=== PATIENT | female | born 1985 | race Caucasian/White ===

== ENCOUNTER 2018-12-21 06:58 | Inpatient (IN) | payer OTHER ==
[~2018-12-21] VITALS: Ht 165.1 cm; Wt 90.0 kg
[~2018-12-21 06:58] MED LIST: DOXYCYCLINE HY100 MG PO; IBUPROFEN600 MG PO; LEVAQUIN500 MG PO; NORCO 5-325 TA1 EACH PO; PRENATAL FORMU1 EAC1 PO
[2018-12-22] MEDS ORDERED: PROBIOTIC1 EAC1 PO (00:50)
[2018-12-22] MEDS ORDERED: MAGNESIUM200 MG PO (00:51)
[2018-12-22] MEDS ORDERED: ZANTAC150 MG PO (00:52)
[2018-12-22] MEDS ORDERED: VITAMIN B COMP1 EACH PO (00:53)
--- NOTE | 2018-12-22 09:34 | PR ---
[facility] [address], [place] [address] Signed Progress Notes IP Datetime Report Generated by CPN: 12/22/2018 09:34 PROGRESS NOTES: [id number] Impression: Normal progression of labor; Reassuring heart rate Other Procedures: Nitrous Oxide Plan: Continue present management; Anesthesia consult Informed Consent Obtain: Vaginal Delivery VITAL SIGNS: [id number] Vital Signs: Reviewed; Within Normal Limits EXAM: [id number] Dilatation: 8.0 Effacement: 90 Station: -1 Uterine Contractions: q1-2 MEMBRANES: [id number] ROM Note: last pelvic exam by RN Comments: Pt seen and evaluated. Doing well. Very uncomfortable w/ contractions. Anesthesia notified and en route, and pt has started nitrous oxide. Denies urge to push and FHT reassuring. Anticipate soon. Fetus A: [id number] FHR Baseline: 145 Variability: Minimal - Undetectable to <5bpm Accelerations: 15X15 Decelerations: None FHR Category: Category II Presentation: Vertex Comments on Fetus A: No evidence of metabolic acidosis Fetus B: [id number] Signing Physician: Pari Khoury DO Copies: ~ *Electronically Signed* 12/22/18 0934 PARI KHOURY DO PATIENT NAME: ANNE-MARIE RIDDLE MARCH PROGRESS NOTE DATE OF : 85 PHYSICIAN: PARI KHOURY DO RPT #: [id number] REPORT IS CONFIDENTIAL AND NOT TO BE RELEASED WITHOUT AUTHORIZATION
--- NOTE | 2018-12-22 10:05 | PR ---
[facility] [address], [place] [address] Signed Progress Notes IP Datetime Report Generated by NICK: 12/22/2018 10:05 PROGRESS NOTES: [id number] Impression: Normal progression of labor Procedures: Scalp Electrode; Sterile Vag Exam Other Procedures: Nitrous Oxide Plan: Continue present management; Anticipate Vaginal Delivery Informed Consent Obtain: Vaginal Delivery VITAL SIGNS: [id number] Vital Signs: Reviewed VS Notable Details: Elevated bps while pt very uncomfortable w/ epidural placement. Will monitor closely EXAM: [id number] Dilatation: 9.0 Effacement: 90 Station: 0 Uterine Contractions: q2 minutes MEMBRANES: [id number] ROM Note: last pelvic exam by RN Comments: Pt seen and examined. Difficult time tracing FHR while epidural being placed. FSE placed as soon as epidural placed and will closely monitor. Pt w/ some elevated BPs while very uncomfortable w/ epidural placement. Denies BRYANT, RUQ pain, or visual changes. C/O severe heartburn. Anticipate soon. Fetus A: [id number] FHR Baseline: indeterminate Variability: Minimal - Undetectable to <5bpm Accelerations: 15X15 Decelerations: None FHR Category: Category II Presentation: Vertex Comments on Fetus A: No evidence of metabolic acidosis Fetus B: [id number] Signing Physician: Pari Khoury DO Copies: ~ *Electronically Signed* 12/22/18 1005 PARI KHOURY DO PATIENT NAME: ANNE-MARIE RIDDLE MARCH PROGRESS NOTE DATE OF : 85 PHYSICIAN: PARI KHOURY DO RPT #: [id number] REPORT IS CONFIDENTIAL AND NOT TO BE RELEASED WITHOUT AUTHORIZATION
--- NOTE | 2018-12-22 10:13 | PR ---
[facility] [address], [place] [address] Signed Progress Notes IP Datetime Report Generated by CPN: 12/22/2018 10:13 PROGRESS NOTES: [id number] Impression: Normal progression of labor Procedures: Scalp Electrode; Sterile Vag Exam Other Procedures: Nitrous Oxide Plan: Continue present management; Anticipate Vaginal Delivery Informed Consent Obtain: Vaginal Delivery VITAL SIGNS: [id number] Vital Signs: Reviewed VS Notable Details: Sustained elevate BP. EXAM: [id number] Dilatation: 9.0 Effacement: 90 Station: 0 Uterine Contractions: q2 minutes MEMBRANES: [id number] ROM Note: last pelvic exam by RN Comments: Pt w/ persistant elevated BPs. Will treat with labetalol 20mg IV x 1 dose and monitor closely. Will check preE profile. Again no BRYANT, RUQ pain, or visual changes. Will hold on magnesium at this time but continue to monitor. Fetus A: [id number] FHR Baseline: 140 Variability: Moderate 6-25bpm Accelerations: 15X15 Decelerations: Variable FHR Category: Category II Presentation: Vertex Comments on Fetus A: No evidence of metabolic acidosis Fetus B: [id number] Signing Physician: Pari Khoury DO Copies: ~ *Electronically Signed* 12/22/18 1013 PARI KHOURY DO PATIENT NAME: ANNE-MARIE RIDDLE MARCH PROGRESS NOTE DATE OF : 85 PHYSICIAN: PARI KHOURY #: [id number] REPORT IS CONFIDENTIAL AND NOT TO BE RELEASED WITHOUT AUTHORIZATION
--- NOTE | 2018-12-23 07:37 | PR ---
[facility] [address] [facility] [place], [place] [address] Signed PP Progress Notes Datetime Report Generated by CPN: 12/23/2018 07:37 SUBJECTIVE: [id number] Pain: Within normal limits Nausea/Vomiting: Denies Flatus: Yes Bowel Movement: No Vital Signs: [id number] Vital Signs: Reviewed; Within Normal Limits EXAM: [id number] Cardiovascular: Normal Respiratory: Normal Abdomen/Uterus: Normal Lochia: Normal Vulva/Perineum: Not Done Breasts: Not Done CVA Tenderness: Normal Extremities: Normal Incision: Not Applicable Progress: Normal Exam Comments: Fundus firm U-2 nontender. No edema. IMPRESSION/PLAN/PROCEDURES: [id number] Impression: Normal progression Plan: Continue present management Progress Notes: Pt seen and examined. Doing well. Ambulating, voiding, and tolerating full diet. Pain and lochia minimal. well. No fevers/chills/other concerns. BPs well controlled. Hgb 10.0. No questions or concerns. Anticipate d/c home tomorrow. Continue routine pp care. Signing Physician: Pari Khoury DO Copies: ~ *Electronically Signed* 12/23/18 0737 PARI KHOURY DO PATIENT NAME: ANNE-MARIE RIDDLE MARCH PROGRESS NOTE DATE OF : 85 PHYSICIAN: PARI KHOURY DO RPT #: [id number] REPORT IS CONFIDENTIAL AND NOT TO BE RELEASED WITHOUT AUTHORIZATION
--- NOTE | 2018-12-24 08:01 | PR ---
[facility] [address] [facility] [place], [place] [address] Signed PP Progress Notes Datetime Report Generated by CPN: 12/24/2018 08:01 SUBJECTIVE: [id number] Pain: Within normal limits Nausea/Vomiting: Denies Flatus: Yes Bowel Movement: Yes Vital Signs: [id number] Vital Signs: Reviewed EXAM: [id number] Cardiovascular: Normal Respiratory: Normal Abdomen/Uterus: Normal Lochia: Normal Vulva/Perineum: Not Done Breasts: Not Done CVA Tenderness: Normal Extremities: Normal Incision: Not Applicable Progress: Normal Exam Comments: Fundus firm U-2 nontender IMPRESSION/PLAN/PROCEDURES: [id number] Impression: Normal progression Plan: Discharge Progress Notes: Pt seen and examined. Doing well. Ambulating, voiding, and tolerating full diet. Pain and lochia minimal. well. No BRYANT, RUQ pain, or visual changes. Desires d/c home. Signing Physician: Pari Khoury DO Copies: ~ *Electronically Signed* 12/24/18 0801 PARI KHOURY DO PATIENT NAME: ANNE-MARIE RIDDLE MARIA TERESA PROGRESS NOTE DATE OF : 85 PHYSICIAN: PARI KHOURY DO RPT #: [id number] REPORT IS CONFIDENTIAL AND NOT TO BE RELEASED WITHOUT AUTHORIZATION
== END 2018-12-24 11:25 | disposition home or self-care (01) | DRG 807 ==
LOC: FBC 12-22 00:09
PROVIDERS: ADMIT Obstetrics & Gynecology
PROC: 10E0XZZ Delivery of Products of Conception, External Approach (ICD-10-PCS; principal; 2018-12-22)
PROC: 0KQM0ZZ Repair Perineum Muscle, Open Approach (ICD-10-PCS; 2018-12-22)
PROC: 3E0P7VZ Introduction of Hormone into Female Reproductive, Via Natural or Artificial Opening (ICD-10-PCS; 2018-12-22)
PROC: 10907ZC Drainage of Amniotic Fluid, Therapeutic from Products of Conception, Via Natural or Artificial Opening (ICD-10-PCS; 2018-12-22)
PROC: 00HU33Z Insertion of Infusion Device into Spinal Canal, Percutaneous Approach (ICD-10-PCS; 2018-12-22)
PROC: 3E0R3BZ Introduction of Anesthetic Agent into Spinal Canal, Percutaneous Approach (ICD-10-PCS; 2018-12-22)
DX: O32.0XX0 Maternal care for unstable lie, not applicable or unspecified (principal); Z37.0 Single live birth; Z3A.39 39 weeks gestation of pregnancy; O99.824 Streptococcus B carrier state complicating childbirth; O70.1 Second degree perineal laceration during delivery; O69.81X0 Labor and delivery complicated by cord around neck, without compression, not applicable or unspecified; O76 Abnormality in fetal heart rate and rhythm complicating labor and delivery; O99.89 Other specified diseases and conditions complicating pregnancy, childbirth and the puerperium; R03.0 Elevated blood-pressure reading, without diagnosis of hypertension
CPT/HCPCS: 01960; 36415; 80053; 84550; 85025; 85027; J2540; J2590; J7060; J7120

== ENCOUNTER 2024-07-14 08:30 | Inpatient (IN) | payer BC ==
[~2024-07-14] VITALS: Ht 167.6 cm; Wt 96.2 kg
[~2024-07-14 08:30] MED LIST changes: +MAGNESIUM200 MG PO; +PROBIOTIC1 EAC1 PO; +VITAMIN B COMP1 EACH PO; +ZANTAC150 MG PO
[2024-07-14 08:47] LABS: HEMATOCRIT 34.6 % (35.0-50.0); HEMOGLOBIN 11.8 g/dL (12.0-18.0); MCH 29.3 (27-36); MCV 86.1 fl (81-99); RBC 4.02 M/ul (4.3-5.7)
[2024-07-14 08:58] LABS: CREATININE, RANDOM URINE 40.74 mg/dL (NOT ESTABLISHED); PROTEIN, RANDOM URINE <6 mg/dL (NOT ESTABLISHED)
[2024-07-14 09:04] LABS: ALBUMIN 2.8 g/dL (3.4-5.0); ALBUMIN/GLOBULIN RATIO 0.72 (1.1-2.4); ANION GAP 14.8 (7-21); BILIRUBIN, TOTAL 0.3 ng/dL (0.2-1.0); BUN/CREATININE RATIO 12.67 (6.0-28.6); CREATININE, SERUM 0.71 mg/dL (0.55-1.02); POTASSIUM 3.8 mmol/L (3.5-5.1); PROTEIN, TOTAL 6.7 g/dL (6.4-8.2)
[2024-07-14] MEDS ORDERED: MAGNESIUM HYDROXIDE/AL HYDROX 30 ML CUP PO PRN (11:45)
[2024-07-14] MEDS ORDERED: miSOPROStoL 25 MCG TAB PV SCH (11:45)
[2024-07-14] MEDS ORDERED: OXYTOCIN/DEXTROSE 5% 20 UNITS/100 ML BAG IV SCH (11:45)
[2024-07-14] MEDS ORDERED: CALCIUM CARBONATE 500 MG CHEW PO PRN (11:45)
[2024-07-14 12:37] LABS: ABO A; ANTIBODY SCREEN NEGATIVE; RH POSITIVE
[2024-07-14 12:44] VITALS: BP 143/78
[2024-07-14 13:09] LABS: AMPHETAMINES, URINE NEGATIVE (NEGATIVE); BARBITURATES, URINE NEGATIVE (NEGATIVE); BENZODIAZEPINE, URINE NEGATIVE (NEGATIVE); BUPRENORPHINE, URINE NEGATIVE (NEGATIVE); CANNABINOID, URINE NEGATIVE (NEGATIVE); COCAINE, URINE NEGATIVE (NEGATIVE); ECSTASY, URINE NEGATIVE (NEGATIVE); FENTANYL, URINE NEGATIVE (NEGATIVE); METHADONE, URINE NEGATIVE (NEGATIVE); OPIATES, URINE NEGATIVE (NEGATIVE); OXYCODONE, URINE NEGATIVE (NEGATIVE); PHENCYCLIDINE, URINE NEGATIVE (NEGATIVE)
[2024-07-15] MEDS ORDERED: fentaNYL citrate 100 MCG/2 ML VIAL ONE (01:05)
[2024-07-15] MEDS ORDERED: ROPIVACAINE 0.2% 200 ML BAG ONE (01:05)
[2024-07-15] MEDS ORDERED: LACTATED RINGER'S 2,000 ML IV ONE (01:15)
[2024-07-15] MEDS ORDERED: ROPIVACAINE 0.2% 200 ML BAG EPIDURAL SCH (01:15)
[2024-07-15] MEDS ORDERED: LACTATED RINGER'S 500 ML IV PRN (01:15)
[2024-07-15] MEDS ORDERED: ePHEDrine sulfate 5 MG/ML SYRINGE IV PRN (01:15)
[2024-07-15] MEDS ORDERED: ePHEDrine KIT FOR FBC IV ONE (01:44)
[2024-07-15] MEDS ORDERED: ondansetron HCL 4 MG/2 ML VIAL ONE (01:46)
[2024-07-15] MEDS ORDERED: PENICILLIN G POTASSIUM 5 MUNITS/110 ML PIGGYBACK IV ONE (08:45)
[2024-07-15] MEDS ORDERED: ACETAMINOPHEN 500 MG TAB PO PRN (10:45)
[2024-07-15] MEDS ORDERED: LIDOCAINE HCL 2% 5 ML SDV ONE (12:06)
[2024-07-15] MEDS ORDERED: dexmedeTOMIDine HCl 200 MCG/2 ML VIAL ONE (12:07)
[2024-07-15] MEDS ORDERED: PENICILLIN G POTASSIUM 2.5 MUNITS in DEXTROSE 5% 100 ML IV SCH (13:00)
[2024-07-15] MEDS ORDERED: OXYTOCIN/0.9 % SODIUM CHLORIDE 500 ML IV SCH (14:15)
[2024-07-15] MEDS ORDERED: IBUPROFEN 600 MG TAB PO PRN (14:15)
[2024-07-15] MEDS ORDERED: BENZOCAINE 60 ML AEROSOL TOP PRN (14:15)
[2024-07-15] MEDS ORDERED: OXYCODONE/APAP 5/325 TAB PO PRN (14:15)
[2024-07-15] MEDS ORDERED: HYDROCORTISONE ACETATE 25 MG SUPP PR PRN (14:15)
[2024-07-15] MEDS ORDERED: WITCH HAZEL/GLYCERIN 1 EA PAD TOP PRN (14:15)
[2024-07-15] MEDS ORDERED: ACETAMINOPHEN 325 MG TAB PO PRN (14:15)
[2024-07-15] MEDS ORDERED: MAGNESIUM HYDROXIDE 30 ML UDC PO PRN (14:15)
[2024-07-15] MEDS ORDERED: CALCIUM CARBONATE 500 MG CHEW PO PRN (14:15)
[2024-07-15] MEDS ORDERED: MAGNESIUM HYDROXIDE/AL HYDROX 30 ML CUP PO PRN (14:15)
[2024-07-15] MEDS ORDERED: HYDROCODONE/ACETA 5/325 TAB PO PRN (14:15)
[2024-07-15] MEDS ORDERED: SENNOSIDES/DOCUSATE 1 EA TAB PO SCH (21:00)
[2024-07-16 05:23] LABS: HEMATOCRIT 34.5 % (35.0-50.0); HEMOGLOBIN 11.7 g/dL (12.0-18.0); MCH 29.6 (27-36); RBC 3.96 M/ul (4.3-5.7); RDW 14.2 (10.5-15.0)
== END 2024-07-16 14:10 | disposition home or self-care (01) | DRG 807 ==
LOC: FBCO 08:30 → FBC 11:25
PROVIDERS: ADMIT Obstetrics & Gynecology; ATTEND Obstetrics & Gynecology
PROC: 10E0XZZ Delivery of Products of Conception, External Approach (ICD-10-PCS; principal; 2024-07-14)
PROC: 10907ZC Drainage of Amniotic Fluid, Therapeutic from Products of Conception, Via Natural or Artificial Opening (ICD-10-PCS; 2024-07-14)
PROC: 0HQ9XZZ Repair Perineum Skin, External Approach (ICD-10-PCS; 2024-07-14)
PROC: 3E0R3BZ Introduction of Anesthetic Agent into Spinal Canal, Percutaneous Approach (ICD-10-PCS; 2024-07-14)
PROC: 00HU33Z Insertion of Infusion Device into Spinal Canal, Percutaneous Approach (ICD-10-PCS; 2024-07-14)
DX: O11.4 Pre-existing hypertension with pre-eclampsia, complicating childbirth (principal); Z37.0 Single live birth; O99.824 Streptococcus B carrier state complicating childbirth; Z3A.39 39 weeks gestation of pregnancy; O77.0 Labor and delivery complicated by meconium in amniotic fluid; O69.81X0 Labor and delivery complicated by cord around neck, without compression, not applicable or unspecified; O70.0 First degree perineal laceration during delivery
CPT/HCPCS: 01960; 36415; 59025; 80053; 80307; 82565; 82570; 83615; 84156; 84550; 85027; 86850; 86900; 86901; A9270; G0463; J2001; J2405; J2540; J2590; J7121